=== PATIENT | female | born 1940 | race Caucasian/White ===

== ENCOUNTER → 2018-06-14 | Outpatient (REF) | payer MEDICARE ==
[2018-06-14 13:37] LABS: APPEARANCE, URINE CLOUDY (CLEAR); BACTERIA, URINE AUTO 1+ (NEGATIVE); BILIRUBIN, URINE AUTO NEGATIVE (NEGATIVE); BLOOD, URINE BLOOD NEGATIVE (NEGATIVE); COLOR, URINE YELLOW (YELLOW); GLUCOSE, URINE (UA) AUTO NEGATIVE (NEGATIVE); KETONE, URINE AUTO NEGATIVE (NEGATIVE); LEUKOCYTE ESTERASE, URINE AUTO 3+ (NEGATIVE); NITRITE, URINE AUTO NEGATIVE (NEGATIVE); PROTEIN, URINE AUTO NEGATIVE (NEGATIVE); RBC, URINE AUTO 0 /HPF (0-3); SPECIFIC GRAVITY URINE AUTO 1.009 (1.002-1.035); SQUAMOUS EPITHELIAL CELL UR AU 5 /HPF (0-6); UROBILINOGEN, URINE AUTO 0.2 mg/dL (0.0-2.0); WBC, URINE AUTO 25 /HPF (0-3)
== END ==
LOC: M LAB REF 13:15
DX: N39.0 Urinary tract infection, site not specified (principal)
CPT/HCPCS: 81001

== ENCOUNTER 2022-07-26 16:20 | Inpatient (IN) | payer MEDICARE ==
[~2022-07-26] VITALS: Ht 160 cm; Wt 75.0 kg
[2022-07-26] MEDS ORDERED: LR 1,000 ML IV ONE (16:55)
[2022-07-26] MEDS ORDERED: cefTRIAXone SOD 2 GM in D5W MINI-BAG PLUS 50 ML IV ONE (16:55)
[2022-07-26] MEDS ORDERED: NS 2,300 ML in IV 1 EA IV ONE (16:55)
[2022-07-26] MEDS ORDERED: ONDANSETRON 4MG 2ML VIAL IV ONE ×2 (17:15→21:45)
[2022-07-26 17:26] LABS: BASO # 0.1 10^3/uL (0.0-0.2); BASO % 0.3 % (0.0-1.0); EOS % 0.1 % (0.0-3.0); HEMATOCRIT 40.3 % (36.0-47.0); HEMOGLOBIN 12.9 g/dl (12.0-15.5); LYMPH # 1.5 10^3/uL (1.5-5.0); LYMPH % 10.5 % (24.0-44.0); MEAN CORPUSCULAR VOLUME 93.7 fl (80.0-96.0); MONO # 0.5 10^3/uL (0.0-0.8); MONO % 3.4 % (2.0-8.0); NEUTROPHILS # 12.4 10^3/uL (1.5-8.5); NEUTROPHILS % 85.1 % (36.0-66.0); PLATELET COUNT, AUTOMATED 308 10^3/uL (150-450); WHITE BLOOD COUNT 14.6 10^3/uL (4.0-10.0)
[2022-07-26 17:37] LABS: INR 0.91; PROTHROMBIN TIME 12.4 SECONDS (12.5-14.5)
[2022-07-26 17:38] LABS: PARTIAL THROMBOPLASTIN TIME 28.6 SECONDS (24.8-34.2)
[2022-07-26] MEDS ORDERED: ISOVUE-370 76% 100ML VIAL As Ordered ONE (17:45)
[2022-07-26] MEDS: MORPHINE 2 MG/ML 1ML VIAL IV PRN ×2 (17:48→18:04)
[2022-07-26 17:51] LABS: LIPASE 37 U/L (12-53)
[2022-07-26 17:53] LABS: BILIRUBIN,DIRECT < 0.1 MG/DL (<0.4)
[2022-07-26 17:54] LABS: ALKALINE PHOSPHATASE 131 U/L (46-116); ALT/SGPT 20 U/L (7.0-40); AST/SGOT 32 U/L (<34); BILIRUBIN,TOTAL 0.3 MG/DL (0.3-1.2); BLOOD UREA NITROGEN 24 MG/DL (9-23); CALCIUM LEVEL 9.6 MG/DL (8.3-10.6); CARBON DIOXIDE LEVEL 26 MMOL/L (20-31); CHLORIDE LEVEL 104 MMOL/L (98-107); CK-MB VALUE MASS < 1.0 NG/ML (<3.6); CREATININE FOR GFR 1.21 MG/DL (0.55-1.30); GLOMERULAR FILTRATION RATE 45.5 (>32); GLUCOSE, FASTING 138 MG/DL (74-106); RSV AMPLIFICATION NEGATIVE (NEGATIVE); SODIUM LEVEL 139 MMOL/L (136-145); TOTAL PROTEIN 7.3 G/DL (5.7-8.2)
[2022-07-26 17:55] LABS: CPK CREATINE PHOSPHOKINASE 66 U/L (34-145); MB/CK RELATIVE INDEX 1.51 (< OR =4)
[2022-07-26 18:44] LABS: CK-MB VALUE MASS < 1.0 NG/ML (<3.6); CPK CREATINE PHOSPHOKINASE 45 U/L (34-145); MB/CK RELATIVE INDEX 2.22 (< OR =4)
[2022-07-26] MEDS: MORPHINE 4 MG/ML 1ML VIAL IV PRN ×2 (19:11→20:56)
[2022-07-26] MEDS ORDERED: CIPROFLOXACIN 400 MG in IV 1 EA IV ONE (20:35)
[2022-07-26] MEDS ORDERED: metroNIDAZOLE 500 MG in IV 1 EA IV ONE (20:35)
[2022-07-26] MEDS ORDERED: ATOR1TAB21 PO (20:41)
[2022-07-26] MEDS ORDERED: HOME MED LIST COMPLETE! XX SCH (20:45)
[2022-07-26] MEDS: NS 1,000 ML IV SCH (22:45)
[2022-07-26] MEDS ORDERED: HYDROMORPHONE HCL 0.5 MG/ 0.5 ML SYRINGE IV PRN (22:45)
[2022-07-27] MEDS ORDERED: metroNIDAZOLE 500 MG in IV 1 EA IV SCH (06:00)
[2022-07-27] MEDS: HEPARIN SOD (PORCINE) 5000UNITS/ML 1ML VIAL/SYRINGE SC SCH ×2 (06:20→18:49)
[2022-07-27 07:34] LABS: MAGNESIUM LEVEL 1.8 MG/DL (1.8-2.4)
[2022-07-27 07:58] LABS: ALKALINE PHOSPHATASE 118 U/L (46-116); ALT/SGPT 340 U/L (7.0-40); AST/SGOT 277 U/L (<34); BILIRUBIN,TOTAL 0.4 MG/DL (0.3-1.2); BLOOD UREA NITROGEN 22 MG/DL (9-23); CALCIUM LEVEL 8.5 MG/DL (8.3-10.6); CARBON DIOXIDE LEVEL 26 MMOL/L (20-31); CHLORIDE LEVEL 105 MMOL/L (98-107); GLOMERULAR FILTRATION RATE 45.9 (>32); GLUCOSE, FASTING 118 MG/DL (74-106); POTASSIUM SERUM 4.1 MMOL/L (3.5-5.1); SODIUM LEVEL 139 MMOL/L (136-145); TOTAL PROTEIN 5.7 G/DL (5.7-8.2)
[2022-07-27 08:05] LABS: MEAN CORPUSCULAR HEMOGLOBIN 30.1 pg (27.0-33.0); MEAN CORPUSCULAR HGB CONC 32.1 g/dl (32.0-36.5); MEAN CORPUSCULAR VOLUME 93.8 fl (80.0-96.0); PLATELET COUNT, AUTOMATED 273 10^3/uL (150-450); RED BLOOD COUNT 3.52 10^6/uL (4.00-5.40); WHITE BLOOD COUNT 10.3 10^3/uL (4.0-10.0)
[2022-07-27 08:16] LABS: HEMOGLOBIN 10.6 g/dl (12.0-15.5)
[2022-07-27] MEDS: NS 1,000 ML IV SCH (08:45)
[2022-07-27] MEDS ORDERED: CIPROFLOXACIN 400 MG in IV 1 EA IV SCH (09:00)
[2022-07-27] MEDS ORDERED: MORPHINE 4 MG/ML 1ML VIAL IV PRN (13:20)
[2022-07-27] MEDS: metroNIDAZOLE (FLAGYL) 500MG TABLET PO SCH ×2 (14:55→22:01)
[2022-07-27] MEDS ORDERED: ACETAMINOPHEN 500 MG TAB PO PRN (17:05)
[2022-07-27] MEDS ORDERED: ISOVUE-370 76% 100ML VIAL As Ordered ONE (17:36)
[2022-07-27 17:57] LABS: HEPATITIS B SURFACE ANTIGEN NEGATIVE (NEGATIVE)
[2022-07-27 18:18] LABS: HEPATITIS B CORE ANTIBODY IGM NEGATIVE (NEGATIVE); HEPATITIS C VIRUS ABY INDEX 0.1 INDEX (<0.8)
[2022-07-27] MEDS: CIPROFLOXACIN 500MG TABLET PO SCH (18:48)
[2022-07-28] MEDS: HEPARIN SOD (PORCINE) 5000UNITS/ML 1ML VIAL/SYRINGE SC SCH (06:00)
[2022-07-28 06:29] LABS: BASO % 0.3 % (0.0-1.0); EOS # 0.1 10^3/uL (0.0-0.5); EOS % 0.5 % (0.0-3.0); HEMATOCRIT 31.1 % (36.0-47.0); HEMOGLOBIN 10.2 g/dl (12.0-15.5); LYMPH # 2.1 10^3/uL (1.5-5.0); LYMPH % 19.3 % (24.0-44.0); MEAN CORPUSCULAR HEMOGLOBIN 30.6 pg (27.0-33.0); MEAN CORPUSCULAR HGB CONC 32.8 g/dl (32.0-36.5); MEAN CORPUSCULAR VOLUME 93.4 fl (80.0-96.0); MONO # 0.5 10^3/uL (0.0-0.8); MONO % 4.4 % (2.0-8.0); NEUTROPHILS # 8.1 10^3/uL (1.5-8.5); NEUTROPHILS % 75.1 % (36.0-66.0); PLATELET COUNT, AUTOMATED 242 10^3/uL (150-450); RED BLOOD COUNT 3.33 10^6/uL (4.00-5.40); WHITE BLOOD COUNT 10.7 10^3/uL (4.0-10.0)
[2022-07-28] MEDS: metroNIDAZOLE (FLAGYL) 500MG TABLET PO SCH (06:56)
[2022-07-28] MEDS: CIPROFLOXACIN 500MG TABLET PO SCH (06:56)
[2022-07-28 07:02] LABS: ALBUMIN 2.7 G/DL (3.2-5.2); BILIRUBIN,TOTAL 0.4 MG/DL (0.3-1.2); CALCIUM LEVEL 8.2 MG/DL (8.3-10.6); CREATININE FOR GFR 1.28 MG/DL (0.55-1.30); GLOMERULAR FILTRATION RATE 42.6 (>32); POTASSIUM SERUM 3.7 MMOL/L (3.5-5.1); TOTAL PROTEIN 5.1 G/DL (5.7-8.2)
[2022-07-28 08:00] VITALS: BP 172/70
[2022-07-28] MEDS ORDERED: CEFU50TA PO (10:09)
[2022-07-28] MEDS ORDERED: PROB250C PO (10:09)
[2022-07-28] MEDS ORDERED: METR-265 PO (10:09)
[2022-07-28] MEDS ORDERED: ASPI81TA26 PO (10:10)
[2022-07-28] MEDS ORDERED: CEFUROXIME 500 MG TAB PO SCH (21:00)
== END 2022-07-28 11:17 | disposition home or self-care (01) | DRG 394 ==
LOC: EDBD 16:20 → M ED 18:06 → M ED INP 22:45 → ENRESERV 07-27 21:40 → CANRESERV 07-27 21:40 → M ICU 07-28 07:31
PROVIDERS: ADMIT Internal Medicine; ATTEND Internal Medicine
DX: K55.9 Vascular disorder of intestine, unspecified (principal); N39.0 Urinary tract infection, site not specified; A09 Infectious gastroenteritis and colitis, unspecified; E78.00 Pure hypercholesterolemia, unspecified; N18.30 Chronic kidney disease, stage 3 unspecified; D72.829 Elevated white blood cell count, unspecified; D64.9 Anemia, unspecified; R74.01 Elevation of levels of liver transaminase levels; B96.1 Klebsiella pneumoniae [K. pneumoniae] as the cause of diseases classified elsewhere; I77.1 Stricture of artery; Z79.899 Other long term (current) drug therapy

== ENCOUNTER → 2022-10-15 | Outpatient (REF) | payer MEDICARE ==
[~2022-10-15] MED LIST: ASPI81TA26 PO; ATOR1TAB21 PO; CEFU50TA PO; METR-265 PO; PROB250C PO
[2022-10-15 17:54] LABS: APPEARANCE, URINE HAZY (CLEAR); BACTERIA, URINE AUTO 3+ (NEGATIVE); BILIRUBIN, URINE AUTO NEGATIVE (NEGATIVE); BLOOD, URINE BLOOD 1+ (NEGATIVE); COLOR, URINE YELLOW (YELLOW); GLUCOSE, URINE (UA) AUTO NEGATIVE (NEGATIVE); KETONE, URINE AUTO NEGATIVE (NEGATIVE); LEUKOCYTE ESTERASE, URINE AUTO 3+ (NEGATIVE); NITRITE, URINE AUTO NEGATIVE (NEGATIVE); PROTEIN, URINE AUTO NEGATIVE (NEGATIVE); RBC, URINE AUTO 9 /HPF (0-3); SPECIFIC GRAVITY URINE AUTO 1.006 (1.002-1.035); SQUAMOUS EPITHELIAL CELL UR AU 0 /HPF (0-6); UROBILINOGEN, URINE AUTO 0.2 mg/dL (0.0-2.0); WBC, URINE AUTO 80 /HPF (0-3)
== END ==
LOC: M LAB REF 16:12
PROVIDERS: ATTEND Physician Assistant
DX: N39.0 Urinary tract infection, site not specified (principal)

== ENCOUNTER 2022-11-05 08:53 | Day surgery (SDC) | payer MEDICARE ==
[~2022-11-05] VITALS: Ht 160 cm; Wt 73.8 kg
[~2022-11-05 08:53] MED LIST changes: +NS 1,000 ML IV ONE
[2022-11-05] MEDS ORDERED: LIDOCAINE 2% 100MG/5ML SDV (FOR ANES.) As Ordered ONE (11:11)
[2022-11-05] MEDS ORDERED: propofoL 500 MG/50 ML VIAL As Ordered ONE (11:11)
[2022-11-05 11:20] VITALS: BP 170/70
== END 2022-11-05 11:35 | disposition home or self-care (01) ==
LOC: M OPP 08:53
PROVIDERS: ATTEND Internal Medicine Gastroenterology
DX: K64.8 Other hemorrhoids (principal); K57.30 Diverticulosis of large intestine without perforation or abscess without bleeding; K55.039 Acute (reversible) ischemia of large intestine, extent unspecified; Z90.49 Acquired absence of other specified parts of digestive tract

== ENCOUNTER → 2024-07-07 | Outpatient (CLI) | payer MEDICARE ==
[~2024-07-07] MED LIST changes: -NS 1,000 ML IV ONE
== END ==
LOC: M PLARAD 08:28
PROVIDERS: ATTEND Family Medicine
DX: I65.23 Occlusion and stenosis of bilateral carotid arteries (principal); J32.3 Chronic sphenoidal sinusitis